=== PATIENT | female | born 1985 | race Hispanic/Latino ===

== ENCOUNTER 2017-04-29 08:45 | Emergency (ER) | payer MEDICAID, OTHER ==
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
--- NOTE | 2017-04-29 10:07 | RAD ---
PROCEDURE: Radiographs of the Chest and Left Ribs. HISTORY: rib pain COMPARISON: None available. TECHNIQUE: Frontal radiograph of the chest and multiple oblique radiographs of the left ribs were obtained. FINDINGS: LEFT RIBS: No fracture or focal lesion visualized. LUNGS: Clear. PLEURA: No pneumothorax or pleural fluid. CARDIOVASCULAR: Normal sized heart. No pulmonary vascular congestion. OTHER FINDINGS: None. IMPRESSION: NO EVIDENCE OF ACUTE DISPLACED FRACTURE.
[2017-04-29 12:41] VITALS: BP 122/70; PULSE 82; RESP 16; TEMP 98.2; O2SAT 100
== END 2017-04-29 12:40 | disposition home or self-care (01) ==
LOC: C.ER 08:45
DX: S20.212A Contusion of left front wall of thorax, initial encounter (principal); Y04.0XXA Assault by unarmed brawl or fight, initial encounter

== ENCOUNTER 2017-07-27 08:58 | Emergency (ER) | payer MEDICAID, OTHER ==
--- NOTE | 2017-07-27 09:59 | C.PDOC ---
History Of Present Illness 31 y/o female presents to the ER complaining of pain in the right sacro-iliac area which began two weeks ago. Patient reports there was blood in her urine two weeks ago and this problem has been resolved. Patient states that she has persistent urinary frequency so she is concerned that she may have UTI or kidney stones. Time Seen by Provider: 07/27/17 09:54 Chief Complaint (Nursing): Back Pain History Per: Patient Onset/Duration Of Symptoms: Days Current Symptoms Are (Timing): Still Present Severity: Moderate Past Medical History Reviewed: Historical Data, Nursing Documentation, Vital Signs Vital Signs: Last Vital Signs Temp 98.0 F 07/27/17 10:54 Pulse 56 L 07/27/17 10:54 Resp 18 07/27/17 10:54 BP 99/62 L 07/27/17 10:54 Pulse Ox 98 07/27/17 13:35 - Medical History PMH: No Chronic Diseases Surgical History: No Surg Hx Family History: States: No Known Family Hx - Social History Hx Alcohol Use: No Hx Substance Use: No - Immunization History Hx Tetanus Toxoid Vaccination: No Hx Influenza Vaccination: No Hx Pneumococcal Vaccination: No Review Of Systems Except As Marked, All Systems Reviewed And Found Negative. Genitourinary: Positive for: Frequency (persistent urinary frequency). Negative for: Dysuria, Hematuria Musculoskeletal: Positive for: Back Pain (pain in the sacro-iliac area) Physical Exam - Physical Exam Appears: Non-toxic, No Acute Distress Skin: Normal Color, Warm Head: Atraumatic, Normacephalic Nose: Normal Neck: Supple Chest: Symmetrical Cardiovascular: Rhythm Regular Respiratory: Normal Breath Sounds, No Accessory Muscle Use Back: No CVA Tenderness, Other (mild tenderness to the right sacroiliac area) ED Course And Treatment O2 Sat by Pulse Oximetry: 98 (RA) Pulse Ox Interpretation: Normal Medical Decision Making Medical Decision Making: Impression: mild R sacro-iliac discomfort urinary frequency normal UA. no CVA tender LOW susp of UTI/Preg/renal stones. Plan: Motrin - 600 mg PO Urine Test Urinalysis Disposition Doctor Will See Patient In The: Office Counseled Patient/Family Regarding: Studies Performed, Diagnosis - Disposition Referrals: [facility] [Outside] [facility] [Outside] Disposition: HOME/ ROUTINE Disposition Time: 11:35 Condition: GOOD Additional Instructions: urinalysis and tests are NEGATIVE LOW suspcion of renal colic. continue motrin as needed for low back discomfort Instructions: Back Pain (ED) Forms: [facility] ([place]), Work Excuse - Clinical Impression Clinical Impression: Low back strain - Scribe Statement The provider has reviewed the documentation as recorded by the Nidhiibe Jacob Allen Provider Attestation: All medical record entries made by the Nidhiibe were at my direction and personally dictated by me. I have reviewed the chart and agree that the record accurately reflects my personal performance of the history, physical exam, medical decision making, and the department course for this patient. I have also personally directed, reviewed, and agree with the discharge instructions and disposition.
[2017-07-27 10:18] LABS: RBC URINE 6 /hpf (0-3); URINE BILIRUBIN NEGATIVE (NEGATIVE); URINE BLOOD 1+ (NEGATIVE); URINE COLOR Yellow (YELLOW); URINE GLUCOSE (UA) NORMAL (Normal); URINE KETONE NEGATIVE (NEGATIVE); URINE LEUKOCYTE ESTERASE NEG Leu/uL (Negative); URINE PROTEIN NEGATIVE (NEGATIVE); URINE UROBILINOGEN NORMAL mg/dL (0.2-1.0); WBC URINE 1 /hpf (0-5)
[2017-07-27 10:55] VITALS: BP 99/62; PULSE 56; RESP 18; TEMP 98
[2017-07-27 11:35] VITALS: O2SAT 98
== END 2017-07-27 11:44 | disposition home or self-care (01) ==
LOC: C.ER 08:58
DX: S39.012A Strain of muscle, fascia and tendon of lower back, initial encounter (principal); X58.XXXA Exposure to other specified factors, initial encounter

== ENCOUNTER 2018-04-23 17:49 | Emergency (ER) | payer MEDICAID ==
[2018-04-23 18:37] VITALS: TEMP 98.7; O2SAT 100
[2018-04-23 19:02] LABS: BASO % 0.3 % (0.0-2.0); HEMOGLOBIN 12.1 g/dL (11.0-16.0); LYMPH # 1.2 K/uL (1.0-4.3); LYMPH % 10.7 % (20.0-40.0); MEAN CELL VOLUME 87.2 fL (81.0-99.0); MEAN CORPUSCULAR HEMOGLOBIN 29.8 pg (27.0-31.0); MEAN CORPUSCULAR HGB CONC 34.2 g/dL (33.0-37.0); MEAN PLATELET VOLUME 8.4 fL (7.2-11.7); MONO # 0.4 K/uL (0.0-0.8); NEUT # 9.3 K/uL (1.8-7.0); RBC 4.07 Mil/uL (3.80-5.20); RED CELL DISTRIBUTION WIDTH 16.5 % (11.5-14.5)
[2018-04-23] MEDS: Sodium Chloride 0.9% 1,000 ML IV ONE (19:02)
[2018-04-23 19:16] LABS: SQUAMOUS EPITHIAL 1 /hpf (0-5); URINE BACTERIA RARE (<OCC); URINE BILIRUBIN NEGATIVE (NEGATIVE); URINE BLOOD NEGATIVE (NEGATIVE); URINE CLARITY Clear (Clear); URINE COLOR Yellow (YELLOW); URINE GLUCOSE (UA) NORMAL (Normal); URINE LEUKOCYTE ESTERASE NEG Leu/uL (Negative); URINE PROTEIN NEGATIVE (NEGATIVE); URINE UROBILINOGEN NORMAL mg/dL (0.2-1.0)
[2018-04-23 19:18] LABS: ALB/GLOB RATIO 1.4 (1.0-2.1); ALBUMIN 3.8 g/dL (3.5-5.0); ALT/SGPT 21 U/L (9-52); AST/SGOT 21 U/L (14-36); BLOOD UREA NITROGEN 12 mg/dL (7-17); CALCIUM 8.9 mg/dl (8.6-10.4); GFR NON-AFRICAN AMERICAN > 60
[2018-04-23] MEDS ORDERED: Potassium & Sodium Phosphate PO STA (19:35)
--- NOTE | 2018-04-23 19:54 | C.PDOC ---
History Of Present Illness 32-year-old female, denies significant PMHx, presents to the emergency department with complaints of syncope. Patient states she had episodes of vomiting and diarrhea that started three days ago, and was unable to tolerate fluids or food. She notes she developed some light headedness today and presented to an urgent care, where she had a syncopal episode. Pt states she woke up and saw everyone looking at her. Currently, she denies any abdominal pain and nausea. She continues to have light headedness. Denies any chest pain or shortness of breath. Patient had a similar episode many years ago while standing outside in the head. She was not seen in the ER for it. PMD None Time Seen by Provider: 04/23/18 18:13 Chief Complaint (Nursing): Syncope History Per: Patient History/Exam Limitations: no limitations Onset/Duration Of Symptoms: Days Current Symptoms Are (Timing): Still Present Past Medical History Reviewed: Historical Data, Nursing Documentation, Vital Signs Vital Signs: Last Vital Signs Temp 98.7 F 04/23/18 17:54 Pulse 78 04/23/18 21:38 Resp 12 04/23/18 21:38 BP 112/65 04/23/18 21:38 Pulse Ox 100 04/23/18 21:38 Family History: States: No Known Family Hx - Social History Hx Alcohol Use: No Hx Substance Use: Yes - Immunization History Hx Tetanus Toxoid Vaccination: No Hx Influenza Vaccination: No Hx Pneumococcal Vaccination: No Review Of Systems Cardiovascular: Positive for: Light Headedness. Negative for: Chest Pain Respiratory: Negative for: Shortness of Breath Gastrointestinal: Negative for: Abdominal Pain Physical Exam - Physical Exam Appears: Non-toxic, No Acute Distress Skin: Warm, Dry, Pale Head: Atraumatic, Normacephalic Eye(s): bilateral: Normal Inspection Nose: Normal Oral Mucosa: Moist Lips: Normal Appearing Throat: No Erythema, No Exudate Neck: Normal ROM, Trachea Midline Chest: Symmetrical Cardiovascular: Rhythm Regular (Bradycardia) Respiratory: Normal Breath Sounds, No Accessory Muscle Use Gastrointestinal/Abdominal: Soft, No Tenderness, No Mass, No Distention, No Guarding, No Rebound Back: Normal Inspection, No Decreased ROM Extremity: Normal ROM, No Deformity, No Swelling Neurological/Psych: Oriented x3, Normal Speech, Normal Cognition, Normal Cranial Nerves, Normal Motor, Normal Sensation ED Course And Treatment - Laboratory Results Result Diagrams: 04/23/18 18:57 04/23/18 18:57 ECG: Interpreted By Me ECG Rhythm: Sinus Bradycardia O2 Sat by Pulse Oximetry: 100 Pulse Ox Interpretation: Normal (RA) Medical Decision Making Medical Decision Making: Impression Syncope, Gastroenteritis Diff Dx (includes but not limited to) Electrolyte abnormality vs anemia vs dehydration vs vasovagal syncope Plan: * Bloodwork * D50, IVFs, Neutra-phos * UA * Reassess and Disposition. Labs unremarkable On reeval pt feeling better s/p IVF. Tolerating PO and eager to be discharged. Disposition - Disposition Referrals: [facility] [Outside] Disposition: HOME/ ROUTINE Disposition Time: 21:00 Condition: IMPROVED Additional Instructions: DRINK PLENTY OF HYDRATING FLUIDS AND REST EAT AT LEAST 3 MEALS A DAY. BLAND DIET FOR NOW AND ADVANCE DIET TOLERATED FOLLOW UP AT CLINIC IN 2-3 DAYS FOR REEVALUATION Prescriptions: Atropine/Diphenoxylate [Lonox 0.025 MG-2.5 MG] 2 tab PO QID PRN #20 tab PRN Reason: Diarrhea Ondansetron ODT [Zofran ODT] 1 odt PO Q6 PRN #20 odt PRN Reason: Nausea/Vomiting Saccharomyces Boulardi [Florastor] 500 mg PO BID #28 cap Instructions: Diarrhea in Adolescents and Adults, Syncope (Fainting) (DC), Viral Gastroenteritis, Adult (DC) Forms: Work Excuse - Clinical Impression Clinical Impression: Gastroenteritis, Vasovagal syncope - Scribe Statement The provider has reviewed the documentation as recorded by the Scribe (Juan Dietrich) Provider Attestation: All medical record entries made by the Scribe were at my direction and personally dictated by me. I have reviewed the chart and agree that the record accurately reflects my personal performance of the history, physical exam, medical decision making, and the department course for this patient. I have also personally directed, reviewed, and agree with the discharge instructions and disposition.
[2018-04-23] MEDS: Dextrose 5%/0.9% NS 1,000 ML IV ONE (20:42)
[2018-04-23 21:39] VITALS: BP 112/65; PULSE 78; RESP 12
--- NOTE | 2018-04-24 12:58 | CARD ---
APPROVED REPORT Date of service: 04/23/2018 EKG Measurement Heart [id number] <Conclusion> Sinus bradycardia with sinus arrhythmia Rightward axis Borderline ECG
== END 2018-04-23 21:38 | disposition home or self-care (01) ==
LOC: C.ER 17:49
DX: R55 Syncope and collapse (principal); K52.9 Noninfective gastroenteritis and colitis, unspecified
CPT/HCPCS: 80053; 81001; 82948; 83605; 83735; 84100; 84702; 85025; 93005; 96360; 99285; J7030; J7042